=== PATIENT | male | born 1990 | race Caucasian/White ===

== ENCOUNTER 2016-05-28 09:06 | Day surgery (SDC) | payer BC ==
[~2016-05-28 09:06] MED LIST: Buffered Lidocaine 1% SYR 3ML* 3 ML/SYR SYRINGE INTRADERM ONE; Famotidine IV* 10 MG/ML 2 ML (20 mg) IV ONE
[2016-05-28] MEDS ORDERED: fentaNYL* 50 MCG/ML 2 ML VIAL (100 MCG VIAL) ONE (09:16)
[2016-05-28] MEDS ORDERED: Midazolam* 1 MG/ML 5 ML VIAL (5 MG) ONE (09:16)
[2016-05-28] MEDS ORDERED: ceFAZolin 2 GM PREMIX (*) 2 GM/50 ML BAG IVPB ONE (09:30)
[2016-05-28] MEDS ORDERED: Famotidine IV* 10 MG/ML 2 ML (20 mg) ONE (09:30)
[2016-05-28] MEDS ORDERED: Bupivacaine 0.25% SDV* 30 ML ONE (10:32)
[2016-05-28] MEDS ORDERED: Dexamethasone IV* 4 MG/ML 1 ML (4 MG) ONE (11:29)
[2016-05-28] MEDS ORDERED: Lidocaine 2% PF * 5 ML VIAL ONE (11:29)
[2016-05-28] MEDS ORDERED: Ketorolac INJ* 30 MG/ML 1 ML VIAL ONE (11:29)
[2016-05-28] MEDS ORDERED: Ondansetron INJ* 2 MG/ML VIAL ONE (11:29)
[2016-05-28] MEDS ORDERED: Propofol* 10 MG/ML 20 ML BTL IV PUSH ONE (11:29)
[2016-05-28] MEDS ORDERED: DiMENhydriNATE IV* 50 MG/ML VIAL IV PUSH PRN (11:30)
[2016-05-28] MEDS ORDERED: Acetaminophen TAB* 325 MG PO PRN (11:30)
[2016-05-28] MEDS ORDERED: Acetaminophen TAB* 325 MG ONE (12:40)
[2016-05-28 13:06] VITALS: BP 113/71
--- NOTE | 2016-05-29 03:50 | OP ---
DATE OF OPERATION: 05/28/16 - [facility] DATE OF : 88 SURGEON: Abel Ramírez MD SPANISH TEACHER: KIRBY Yeung ANESTHESIOLOGIST: Dr. Marie. ANESTHESIA: General. PRE-OP DIAGNOSIS: Right middle finger extensor tendon laceration in the area of the dorsal hand. POST-OP DIAGNOSIS: Right middle finger extensor tendon laceration in the area of the dorsal hand. OPERATIVE PROCEDURE: Open repair of right middle finger extensor tendon at the level of the dorsal hand. INDICATIONS: Bishnu punched through some glass and had some lacerations on the volar aspect of the distal forearm. Luckily these were superficial and no tendon or neurovascular injury could be appreciated on exam. He did have another puncture wound on the dorsal aspect of the hand. He has a notable extensor lag in the middle finger. The rest of the fingers flex and extend normally. We talked about risks and benefits, he would like to proceed with surgery. ESTIMATED BLOOD LOSS: 5 mL. COMPLICATIONS: None. FINDINGS: Oblique sharp laceration as expected. DESCRIPTION OF PROCEDURE: Bishnu was seen in the preoperative holding area and the correct side and site were marked. We came back to the operating room where anesthesia was induced. The arm was prepped and draped in the usual fashion. A formal time-out was performed. I made an S-shaped incision over the dorsal aspect of the hand in the expected area of the tendon laceration. Dissection was carried down longitudinally to protect the dorsal sensory nerves. Prior to opening the paratenon layer, the distal aspect of the lacerated tendon was noted. I dissected out superficially a little bit with tenotomy scissors until I found the proximal aspect. I then opened the paratenon. The tendon was approximated and held in place with a 25- gauge needle. With the tendon edges approximated, I then used a 3-0 Ethibond suture to perform a 6-strand repair. I then used a 4-[address] a running epitendinous suture. The repair looked very nice. The finger was just a tad more extended and the remaining fingers in their normal cascade. I then irrigated the wound and closed the skin with some 4-0 nylon suture. The area was infiltrated with Marcaine. I then dressed the wound with Xeroform, 4x4's, sterile Webril, and a volar splint was placed holding the wrist in slight extension and the MP joints in full extension. I went out to the level of the middle phalanx. He was then woken back up and taken to the recovery room in stable condition. [id number]/[facility] #: [id number] UBALDO
== END 2016-05-28 13:32 | disposition home or self-care (01) ==
LOC: OREAST 09:06
PROVIDERS: ATTEND Orthopaedic Surgery Hand Surgery
DX: S66.821A Laceration of other specified muscles, fascia and tendons at wrist and hand level, right hand, initial encounter (principal); B19.20 Unspecified viral hepatitis C without hepatic coma; W25.XXXA Contact with sharp glass, initial encounter; Y92.9 Unspecified place or not applicable
CPT/HCPCS: A9270-GY; J0690; J1100; J1885; J2250; J2405; J2704; J3010